=== PATIENT | male | born 1980 | race Caucasian/White ===

== ENCOUNTER 2017-03-06 17:41 | Emergency (ER) | payer SELFPAY ==
[~2017-03-06] VITALS: Ht 175.3 cm; Wt 68.0 kg
[2017-03-06 19:04] LABS: BASOPHILS # (AUTO) 0.1 K/uL (0.0-8.0); BASOPHILS % (AUTO) 1.3 % (0.0-2.0); EOSINOPHILS # (AUTO) 0.1 K/uL (0.0-0.7); EOSINOPHILS % (AUTO) 0.9 % (0.0-7.0); HEMATOCRIT 41.9 % (40-50); LYMPHOCYTES % (AUTO) 9.4 % (20.5-51.5); MEAN CORPUSCULAR HEMOGLOBIN 29.3 UUG (27.0-31.0); MEAN CORPUSCULAR HGB CONC 34 g/dL (32.0-37.0); MEAN CORPUSCULAR VOLUME 87.5 FL (82.0-92.0); MONOCYTES # (AUTO) 0.4 K/UL (0.1-1.30); MONOCYTES % (AUTO) 3.5 % (0.0-11.0); NEUTROPHILS # (AUTO) 9.4 K/UL (1.8-8.9); NEUTROPHILS % (AUTO) 84.9 % (38.5-71.5); PLATELET COUNT (AUTO) 345 K/UL (150-450); RED BLOOD CELL COUNT(AUTO) 4.79 MIL/UL (4.7-6.1)
--- NOTE | 2017-03-06 19:05 | NUR ---
saline lock placed, 2l 0.9ns bolus started, vancomycin infusing and indorsed to luly housecalls nurse to complete. blood cx and labs drawn. pt medicated for pain/positioned for comfort.
[2017-03-06 19:13] LABS: CREATININE 0.8 mg/dL (0.6-1.3); POTASSIUM 3.8 mmol/L (3.5-5.1)
[2017-03-06 19:18] LABS: BILIRUBIN,DIRECT 0.1 mg/dL (0.0-0.2); BILIRUBIN,TOTAL 0.3 mg/dL (0.2-1.0); TOTAL PROTEIN, SERUM 7.6 g/dL (6.4-8.2)
[2017-03-06 21:50] VITALS: BP 118/78
--- NOTE | 2017-03-06 21:50 | NUR ---
Patient discharged to home in stable conditon. Written and verbal after care instructions given. Patient verbalizes understanding of instructions.
== END 2017-03-06 21:51 | disposition home or self-care (01) ==
LOC: ER 17:43
DX: L03.311 Cellulitis of abdominal wall (principal); L02.211 Cutaneous abscess of abdominal wall; F17.200 Nicotine dependence, unspecified, uncomplicated
CPT/HCPCS: 36415; 83605; 85025; 85730; 87040; 87070; 87077; A4663; J2270; J2405; J2543; J3370; J3490; J7030; J7050; Q9967

== ENCOUNTER 2017-08-05 09:40 | Emergency (ER) | payer SELFPAY ==
[~2017-08-05] VITALS: Ht 172.7 cm; Wt 72.6 kg
[2017-08-05] MEDS ORDERED: VANCOMYCIN IV 1,000 MG in IV DEXTROSE 5% 250 ML IV ONE (10:45)
[2017-08-05] MEDS ORDERED: PIPERACILLIN SODIUM/TAZOBACTAM 3.375 G in IV DEXTROSE 5% 50 ML IV ONE (10:45)
[2017-08-05] MEDS ORDERED: VANCOMYCIN IV 200 ML ONE (10:56)
[2017-08-05] MEDS ORDERED: PIPERACILLIN/TAZOBACTAM/D5W 50 ML IV ONE (10:57)
[2017-08-05 11:07] LABS: BASOPHILS # (AUTO) 0.1 K/uL (0.0-8.0); BASOPHILS % (AUTO) 0.6 % (0.0-2.0); EOSINOPHILS # (AUTO) 0.1 K/uL (0.0-0.7); EOSINOPHILS % (AUTO) 0.7 % (0.0-7.0); HEMATOCRIT 40.6 % (36.7-47.1); HEMOGLOBIN 13.9 g/dL (12.5-16.3); LYMPHOCYTES # (AUTO) 1.7 K/uL (20.0-40.0); LYMPHOCYTES % (AUTO) 17.6 % (20.5-51.5); MEAN CORPUSCULAR HEMOGLOBIN 29.5 uug (23.8-33.4); MEAN CORPUSCULAR HGB CONC 34 g/dL (32.5-36.3); MEAN CORPUSCULAR VOLUME 86.1 fL (73.0-96.2); MONOCYTES # (AUTO) 0.8 K/uL (2.0-10.0); MONOCYTES % (AUTO) 7.9 % (0.0-11.0); NEUTROPHILS # (AUTO) 7.2 K/uL (1.8-8.9); NEUTROPHILS % (AUTO) 73.2 % (38.5-71.5); PLATELET COUNT (AUTO) 312 K/uL (152-348); POTASSIUM 4.1 mmol/L (3.5-5.1); RED BLOOD CELL COUNT(AUTO) 4.72 MIL/uL (4.06-5.63); WHITE BLOOD COUNT (AUTO) 9.8 K/uL (3.6-10.2)
--- NOTE | 2017-08-05 11:13 | NUR ---
SALINE LOCK PLACED/IVPB INFUSING,LABS DRAWN/SENT, PT POSITIONED FOR COMFORT. XRAYS DONE.
[2017-08-05] MEDS ORDERED: ONDANSETRON IV *ER 4 MG/2 ML VIAL IV ONE (11:15)
[2017-08-05] MEDS ORDERED: HYDROMORPHONE 1 MG/1 ML DISP.SYRIN IV ONE (11:15)
[2017-08-05] MEDS ORDERED: HYDROMORPHONE 2 MG/1 ML DISP.SYRIN ONE (11:18)
[2017-08-05] MEDS ORDERED: ONDANSETRON 4 MG/2 ML VIAL ONE (11:18)
[2017-08-05 11:21] LABS: BILIRUBIN,DIRECT 0.1 mg/dL (0.0-0.2); BILIRUBIN,TOTAL 0.4 mg/dL (0.2-1.0); TOTAL PROTEIN, SERUM 7.5 g/dL (6.4-8.2)
--- NOTE | 2017-08-05 12:53 | NUR ---
IV D/C'D INTACT, PT D/C'D HOME, ACI/RX X2 GIVEN. PT GOT DRESSED AMBULATED W/O DIFF/TOOK ALL BELONGINGS.
[2017-08-05 12:54] VITALS: BP 132/74
== END 2017-08-05 12:55 | disposition home or self-care (01) ==
LOC: ER 09:40
DX: L03.113 Cellulitis of right upper limb (principal); F32.9 Major depressive disorder, single episode, unspecified; F41.9 Anxiety disorder, unspecified; F17.210 Nicotine dependence, cigarettes, uncomplicated; F12.10 Cannabis abuse, uncomplicated
CPT/HCPCS: 36415; 70030-TC; 73130; 83605; 85025; 87040; A4663; J1170; J2405; J2543; J3370

== ENCOUNTER 2017-08-19 09:58 | Inpatient (IN) | payer SELFPAY ==
[~2017-08-19] VITALS: Ht 177.8 cm; Wt 66.3 kg
[2017-08-19] MEDS ORDERED: PIPERACILLIN SODIUM/TAZOBACTAM 3.375 G in IV DEXTROSE 5% 50 ML IV ONE ×2 (10:35→17:57)
[2017-08-19] MEDS ORDERED: VANCOMYCIN 1G/D5W 200 ML PIGGYBACK IV ONE (10:35)
[2017-08-19] MEDS ORDERED: HYDROCODONE/APAP 7.5-325MG TABLET PO PRN (10:45)
[2017-08-19] MEDS ORDERED: HYDROCODONE/APAP 7.5-325MG TABLET ONE (10:53)
[2017-08-19] MEDS ORDERED: VANCOMYCIN IV 200 ML ONE (10:53)
[2017-08-19] MEDS ORDERED: PIPERACILLIN/TAZOBACTAM/D5W 50 ML IV ONE (10:53)
[2017-08-19 10:56] LABS: BASOPHILS # (AUTO) 0.1 K/uL (0.0-8.0); BASOPHILS % (AUTO) 0.5 % (0.0-2.0); EOSINOPHILS # (AUTO) 0.1 K/uL (0.0-0.7); EOSINOPHILS % (AUTO) 0.4 % (0.0-7.0); HEMOGLOBIN 15.2 g/dL (12.5-16.3); LYMPHOCYTES # (AUTO) 1.1 K/uL (20.0-40.0); LYMPHOCYTES % (AUTO) 9.1 % (20.5-51.5); MEAN CORPUSCULAR HEMOGLOBIN 29.8 uug (23.8-33.4); MEAN CORPUSCULAR HGB CONC 35 g/dL (32.5-36.3); MEAN CORPUSCULAR VOLUME 86.2 fL (73.0-96.2); MONOCYTES # (AUTO) 0.7 K/uL (2.0-10.0); NEUTROPHILS # (AUTO) 10.3 K/uL (1.8-8.9); PLATELET COUNT (AUTO) 372 K/uL (152-348); RED BLOOD CELL COUNT(AUTO) 5.11 MIL/uL (4.06-5.63); WHITE BLOOD COUNT (AUTO) 12.3 K/uL (3.6-10.2)
[2017-08-19 11:03] LABS: *BLOOD, URINE NEGATIVE (NEGATIVE); *CLARITY,URINE CLEAR (CLEAR); *KETONES,URINE 2+ (NEGATIVE); *PROTEIN,URINE 1+ (NEGATIVE); LEUKOCYTE ESTERASE ,URINE NEGATIVE (NEGATIVE); NITRITE, URINE NEGATIVE (NEGATIVE); PH,URINE 5.5 (5.0-8.0); UGLUCOSE NEGATIVE (NEGATIVE)
[2017-08-19 11:04] LABS: CREATININE 1.1 mg/dL (0.6-1.3); POTASSIUM 4.1 mmol/L (3.5-5.1)
[2017-08-19 11:04] LABS: *COLOR,URINE DARK YELLOW (YELLOW)
--- NOTE | 2017-08-19 11:06 | NUR ---
LABS DRAWN/SALINE LOCK PLACED, ZOSYN IVPB INFUSING, SXRAYS DONE. NORCO ADMIN.
[2017-08-19 11:07] LABS: *BILIRUBIN,URIN NEGATIVE (NEGATIVE)
[2017-08-19 11:11] LABS: BILIRUBIN,TOTAL 0.6 mg/dL (0.2-1.0); TOTAL PROTEIN, SERUM 8.3 g/dL (6.4-8.2)
[2017-08-19 11:11] LABS: BACTERIA,URINE NONE SEEN /HPF (NONE SEEN); MUCUS,URINE FEW /LPF (0-FEW); RBC,URINE 0-3 /HPF (0-3); SQUAMOUS EPITHELIAL CELL,UR FEW /HPF (NONE SEEN); WBC,URINE 0-3 /HPF (0-3)
[2017-08-19 11:23] LABS: *AMPHETAMINE, URINE POSITIVE (NEGATIVE); *BARBITURATE, URINE NEGATIVE (NEGATIVE); *CANNABINOID, URINE POSITIVE (NEGATIVE); *COCCAINE, URINE NEGATIVE (NEGATIVE); *OPIATE, URINE NEGATIVE (NEGATIVE); *PHENCYCLIDINE SCREEN,URINE NEGATIVE (NEGATIVE)
--- NOTE | 2017-08-19 12:37 | NUR ---
"..No nurse" per 2nd floor marking machine tender Rohoni.
--- NOTE | 2017-08-19 12:39 | NUR ---
Nursing supervisor [employer] notified regarding the unavailability of medical-surgical nurse for this patient.
--- NOTE | 2017-08-19 14:03 | NUR ---
pt awaiting for bed availability in 2nd floor, lunch given.
[2017-08-19] MEDS ORDERED: HYDROCODONE/APAP 10-325 MG TABLET PO ONE (15:00)
[2017-08-19] MEDS ORDERED: HYDROCODONE/APAP 10-325 MG TABLET ONE (15:00)
--- NOTE | 2017-08-19 17:47 | NUR ---
sbar report to mee caballero. belongings list done, admit order written.
--- NOTE | 2017-08-19 18:08 | NUR ---
pt to rm [id number].
--- NOTE | 2017-08-19 18:30 | NUR ---
PT TRANSFERRED ONTO MEDSURG/TELEMETRY FLOOR IN STABLE CONDITION, NO S/S OF DISTRESS, AMBULATORY. VITAL SIGNS TAKEN AND ARE WNL. BELONGINGS CHECKLIST COMPLETED. WILL ENDORSE INFORMATION ABOUT PATIENT'S ADMISSION TO NEXT SHIFT NURSE. PATIENT HAS ORDER FOR REGULAR DIET. WILL CALL DIETARY TO BRING DINNER TRAY UP FOR PATIENT.
[2017-08-19 18:48] VITALS: BP 120/74
[2017-08-19] MEDS ORDERED: HYDROCODONE/APAP 5-325MG TABLET PO PRN (19:45)
[2017-08-19] MEDS ORDERED: MORPHINE SULFATE 2 MG/1 ML DISP.SYRIN IV PRN ×2 (19:45→20:15)
[2017-08-19] MEDS ORDERED: ONDANSETRON 4 MG/2 ML VIAL IV PRN (19:45)
[2017-08-19] MEDS ORDERED: ACETAMINOPHEN 325 MG TABLET PO PRN (19:45)
[2017-08-19] MEDS ORDERED: MORPHINE SULFATE 4 MG/1 ML DISP.SYRIN IV PRN (20:00)
--- NOTE | 2017-08-19 20:01 | NUR ---
CLINICAL PHARMACY NOTE:VANCOMYCIN DOSING Request for vancomycin dosing on 36 y/o male 5'8" 160lbs for cellulitis Temp 98.8 BUN 16 Scr 1.1 WBC 12.3 also on Zosyn Received vancomycin 1gm in ER. Continue vancomycin 1GM ivpb q12h estimate trough 13. Will order trough level prior to 4th dose. Will continue to monitor
[2017-08-19 20:58] VITALS: BP 113/70
[2017-08-19] MEDS: VANCOMYCIN IV 1 G in PREMIXED 0 EACH IV SCH (21:17)
[2017-08-19] MEDS: PIPERACILLIN/TAZOBACTAM/D5W 50 ML IV SCH (23:03)
[2017-08-20 04:00] VITALS: BP 133/77
--- NOTE | 2017-08-20 06:01 | NUR ---
PT SLEPT WELL THROUGH THE NIGHT AND WAS EASILY AWOKEN, PT COMPLAINED OF BURNING PAIN OR HIS HANDS/FINGERS, PT WAS GIVEN A DOSE OF MORPHINE AND WAS EFFECTIVE. PT DENIED HAVING ANY DIFFICULTY BREATHING. PT'S FINGERS ARE SLIGHTLY SWOLLEN BUT NO REDNESS NOTED. ALL NEEDS MET, SAFETY MEASURES ARE IN PLACE, CALL LIGHT WITHIN REACH, BED ALARM IS ON.
[2017-08-20] MEDS: PIPERACILLIN/TAZOBACTAM/D5W 50 ML IV SCH ×2 (06:08→12:19)
[2017-08-20] MEDS ORDERED: FAMOTIDINE 20 MG TABLET PO SCH (09:00)
[2017-08-20] MEDS: VANCOMYCIN IV 1 G in PREMIXED 0 EACH IV SCH (09:10)
--- NOTE | 2017-08-20 11:45 | NUR ---
Patient expressed intention to leave, worried of his belongings left at home. Patient wanted to smoke, discussed hospital's no smoking policy and smoking cessation teaching provided, patient verbalized understanding but refused and insisted to go out for a smoke. Patient stated "I have been patient for the last 2 days not going out to smoke". Discussed risks/safety of leaving the unit. [facility], security notified, aware.
[2017-08-20 12:02] VITALS: BP 113/75
--- NOTE | 2017-08-20 15:28 | NUR ---
CLINICAL PHARMACY NOTE:VANCOMYCIN DOSING Request for vancomycin dosing on 36 y/o male 5'8" 160lbs for cellulitis Temp 97.9 BUN 16 (08/19) Scr 1.1 (08/19) WBC 12.3 (/) also on Zosyn Continue vancomycin 1GM ivpb q12h estimate trough 13. Will order trough level prior to 4th dose (due tontonia at 2030). RN endorsed to hold dose if level >20. Will check level in am and adjust as needed. Will continue to monitor
--- NOTE | 2017-08-20 15:47 | NUR ---
RN came back from lunch break, found security, boiler house supervisor, furnace charger and other healthcare staff, stephen amado was called in. Break relief RN reported patient was threatening to hit/harm RN, stephen amado was activated. Patient was verbally abusive, refusing to sign AMA form, patient stated "I am not signing anything unless I talk to my water plumber". Patient was agitated, left his room/unit, ambulatory, in no distress. IV access and ID band removed. Patient took his belongings, refusing to sign any papers. Incident witnessed by healthcare staff stated above. notified.
[2017-08-20] MEDS ORDERED: LACTOBACILLUS RHAMNOSUS GG 1 EACH CAPSULE PO SCH (21:00)
== END 2017-08-20 15:50 | disposition left against medical advice (07) | DRG 603 ==
LOC: ER 09:58 → MED 17:57
PROVIDERS: ADMIT Internal Medicine; ATTEND Internal Medicine
DX: L03.114 Cellulitis of left upper limb (principal); E87.1 Hypo-osmolality and hyponatremia; L03.012 Cellulitis of left finger; M65.842 Other synovitis and tenosynovitis, left hand; S60.512D Abrasion of left hand, subsequent encounter; S60.511D Abrasion of right hand, subsequent encounter; S90.812D Abrasion, left foot, subsequent encounter; S90.811D Abrasion, right foot, subsequent encounter; X58.XXXD Exposure to other specified factors, subsequent encounter; F17.210 Nicotine dependence, cigarettes, uncomplicated; F12.90 Cannabis use, unspecified, uncomplicated; R73.9 Hyperglycemia, unspecified; F41.9 Anxiety disorder, unspecified; F32.9 Major depressive disorder, single episode, unspecified
CPT/HCPCS: 36415; 73120; 80307; 85025; 87040; A4663; J2270; J2543; J3370; J7040; J7060

== ENCOUNTER 2019-12-01 05:27 | Emergency (ER) | payer SELFPAY ==
[~2019-12-01] VITALS: Ht 175.3 cm; Wt 68.0 kg
[2019-12-01] MEDS ORDERED: ALPR2TAB7 PO (05:36)
--- NOTE | 2019-12-01 05:37 | NUR ---
PATIENT ARRIVED AT THE ER WITH C/O LLE PAIN SINCE YESTERDAY.
--- NOTE | 2019-12-01 05:38 | NUR ---
Dr. Thompson at bedside for MSE.
[2019-12-01] MEDS ORDERED: IBUPROFEN 600 MG TABLET ONE (05:44)
[2019-12-01] MEDS ORDERED: IBUPROFEN 600 MG TABLET PO ONE (05:45)
[2019-12-01 06:16] VITALS: BP 120/86
--- NOTE | 2019-12-01 06:17 | NUR ---
Patient discharged to home in stable condition. Written and verbal after care instructions given. Patient verbalizes understanding of instructions. Stressed follow up or return to ER for worsening s/s. Pt ambulated out of the ER. All belongings with pt.
== END 2019-12-01 06:17 | disposition home or self-care (01) ==
LOC: ER 05:30
DX: S93.602A Unspecified sprain of left foot, initial encounter (principal); S96.912A Strain of unspecified muscle and tendon at ankle and foot level, left foot, initial encounter; V00.131A Fall from skateboard, initial encounter; Y93.51 Activity, roller skating (inline) and skateboarding; Y92.89 Other specified places as the place of occurrence of the external cause; F17.210 Nicotine dependence, cigarettes, uncomplicated
CPT/HCPCS: 73610; 73630; A4663

== ENCOUNTER 2019-12-26 16:24 | Emergency (ER) | payer SELFPAY ==
[~2019-12-26] VITALS: Ht 177.8 cm; Wt 72.1 kg
[~2019-12-26 16:24] MED LIST: ALPR2TAB7 PO
--- NOTE | 2019-12-26 16:37 | NUR ---
DR. SOMMER AT BEDSIDE FOR MSE
--- NOTE | 2019-12-26 17:13 | NUR ---
Patient discharged to home in stable condition. Written and verbal after care instructions given. Patient verbalizes understanding of instructions. Stressed follow up or return to ER for worsening s/s. Patient ambulating with steady gait. NAD noted
[2019-12-26 18:18] VITALS: BP 112/80
== END 2019-12-26 17:13 | disposition home or self-care (01) ==
LOC: ER 16:27
DX: S92.325A Nondisplaced fracture of second metatarsal bone, left foot, initial encounter for closed fracture (principal); X58.XXXA Exposure to other specified factors, initial encounter; Y92.89 Other specified places as the place of occurrence of the external cause
CPT/HCPCS: 73630; A4663

== ENCOUNTER 2020-11-08 12:58 | Emergency (ER) | payer MEDICAID ==
[~2020-11-08] VITALS: Ht 170.2 cm; Wt 68.0 kg
--- NOTE | 2020-11-08 13:33 | NUR ---
PT IS IN ROOM #1B. POLICE AT THE BEDSIDE. DR ARROYO EVALUATED THE PT.
--- NOTE | 2020-11-08 14:17 | NUR ---
Patient discharged to home in stable condition. Patient taken in police custody. No signs of acute distress. Written and verbal after care instructions given. Patient verbalizes understanding of instructions. Stressed follow up or return to ER for worsening s/s.
[2020-11-08 14:18] VITALS: BP 127/73
== END 2020-11-08 14:19 | disposition home or self-care (01) ==
LOC: ER 13:01
DX: S62.102A Fracture of unspecified carpal bone, left wrist, initial encounter for closed fracture (principal); Y09 Assault by unspecified means; Y92.89 Other specified places as the place of occurrence of the external cause; F17.200 Nicotine dependence, unspecified, uncomplicated; S59.902A Unspecified injury of left elbow, initial encounter; R55 Syncope and collapse; F32.9 Major depressive disorder, single episode, unspecified; F41.9 Anxiety disorder, unspecified
CPT/HCPCS: 73070; 73100; A4663

== ENCOUNTER 2021-09-09 18:59 | Emergency (ER) | payer MEDICAID ==
[~2021-09-09] VITALS: Ht 177.8 cm; Wt 70.3 kg
--- NOTE | 2021-09-09 19:10 | NUR ---
PT AMBULATED TO ER C/O RASH ON ABD WITH UNKNOWN ETIOLOGY. PT A/O X3, NO SOB OR LABORED BREATHING, AFEBRILE. DENIES ANY CP/PRESSURE. NO GI/ DISTRESS.
--- NOTE | 2021-09-09 19:22 | NUR ---
DR. DING AT BEDSIDE, MSE IN PROGRESS.
--- NOTE | 2021-09-09 19:47 | NUR ---
LAB AT BEDSIDE.
[2021-09-09 19:57] LABS: MEAN CORPUSCULAR HEMOGLOBIN 29.5 uug (23.8-33.4); MEAN CORPUSCULAR VOLUME 86.3 fL (73.0-96.2); PLATELET COUNT (AUTO) 330 K/uL (152-348)
[2021-09-09 20:05] LABS: CREATININE 1.2 mg/dL (0.6-1.3); POTASSIUM 3.9 mmol/L (3.5-5.1)
[2021-09-09] MEDS ORDERED: ERYT250T65 PO (21:05)
[2021-09-09 21:13] VITALS: BP 126/84
--- NOTE | 2021-09-09 21:13 | NUR ---
Patient discharged to home in stable condition. Written and verbal after care instructions given. Patient verbalizes understanding of instructions. Stressed follow up or return to ER for worsening s/s. Steady gait, denies any pain/discomfort upon discharge.
== END 2021-09-09 21:12 | disposition home or self-care (01) ==
LOC: ER 19:03
DX: L03.311 Cellulitis of abdominal wall (principal); E83.51 Hypocalcemia; R73.9 Hyperglycemia, unspecified
CPT/HCPCS: 36415; 85025; A4663

== ENCOUNTER 2021-09-28 16:51 | Emergency (ER) | payer MEDICAID ==
[~2021-09-28] VITALS: Ht 177.8 cm; Wt 68.0 kg
[~2021-09-28 16:51] MED LIST changes: +ERYT250T65 PO
[2021-09-28] MEDS ORDERED: ALPR1TAB7 PO (18:14)
--- NOTE | 2021-09-28 18:34 | NUR ---
Patient discharged to home in stable condition. Written and verbal after care instructions given. Patient verbalizes understanding of instructions. Stressed follow up or return to ER for worsening s/s.
[2021-09-28 18:36] VITALS: BP 119/88
== END 2021-09-28 18:36 | disposition home or self-care (01) ==
LOC: ER 16:53
DX: F41.9 Anxiety disorder, unspecified (principal); Z76.0 Encounter for issue of repeat prescription
CPT/HCPCS: A4663

== ENCOUNTER 2022-03-19 18:39 | Emergency (ER) | payer MEDICAID ==
[~2022-03-19 18:39] MED LIST changes: +ALPR1TAB7 PO; -ALPR2TAB7 PO; -ERYT250T65 PO
== END 2022-03-19 19:46 | disposition left against medical advice (07) ==
LOC: ER 18:39
DX: Z53.21 Procedure and treatment not carried out due to patient leaving prior to being seen by health care provider (principal)

== ENCOUNTER 2022-06-23 12:11 | Emergency (ER) | payer SELFPAY ==
[~2022-06-23] VITALS: Ht 177.8 cm; Wt 68.0 kg
[2022-06-23] MEDS ORDERED: ALPR2TAB7 PO (12:29)
[2022-06-23] MEDS ORDERED: ALPRAZOLAM 0.25 MG TABLET ONE (12:30)
[2022-06-23] MEDS ORDERED: ALPRAZOLAM 0.25 MG TABLET PO ONE (12:30)
[2022-06-23 12:35] VITALS: BP 86/118
--- NOTE | 2022-06-23 12:37 | NUR ---
Patient presented to the ER reporting symptoms of anxiety. Patient requesting prescription refill. Physician seen and medications given. Patient departed ambulatory.
== END 2022-06-23 13:00 | disposition home or self-care (01) ==
LOC: ER 12:11
DX: F41.9 Anxiety disorder, unspecified (principal); Z76.0 Encounter for issue of repeat prescription; R03.0 Elevated blood-pressure reading, without diagnosis of hypertension
CPT/HCPCS: A4663

== ENCOUNTER 2022-12-20 10:44 | Emergency (ER) | payer SELFPAY ==
[~2022-12-20] VITALS: Ht 177.8 cm; Wt 68.0 kg
[~2022-12-20 10:44] MED LIST changes: +ALPR2TAB7 PO
[2022-12-20] MEDS ORDERED: ALPR2TAB2 PO (11:35)
[2022-12-20] MEDS ORDERED: AZIT500T PO (11:35)
[2022-12-20] MEDS ORDERED: PRED50TA PO (11:35)
[2022-12-20 11:56] VITALS: BP 122/85; O2SAT 99
== END 2022-12-20 11:56 | disposition home or self-care (01) ==
LOC: ER 10:44
DX: F41.9 Anxiety disorder, unspecified (principal); J22 Unspecified acute lower respiratory infection; F17.210 Nicotine dependence, cigarettes, uncomplicated; Z79.2 Long term (current) use of antibiotics; Z79.899 Other long term (current) drug therapy
CPT/HCPCS: A4663

== ENCOUNTER 2023-01-25 10:47 | Emergency (ER) | payer SELFPAY ==
[~2023-01-25] VITALS: Ht 177.8 cm; Wt 72.6 kg
[~2023-01-25 10:47] MED LIST changes: +ALPR2TAB2 PO; +AZIT500T PO; +PRED50TA PO
[2023-01-25] MEDS ORDERED: ALPRAZOLAM 0.25 MG TABLET PO ONE (11:00)
[2023-01-25] MEDS ORDERED: ALPRAZOLAM 0.5 MG TABLET ONE (11:03)
[2023-01-25] MEDS ORDERED: ALPR2TAB2 PO (11:09)
[2023-01-25 11:15] VITALS: BP 112/75; O2SAT 98
== END 2023-01-25 11:15 | disposition home or self-care (01) ==
LOC: ER 10:47
DX: F41.9 Anxiety disorder, unspecified (principal); F17.210 Nicotine dependence, cigarettes, uncomplicated; Z76.0 Encounter for issue of repeat prescription; Z79.2 Long term (current) use of antibiotics; Z79.899 Other long term (current) drug therapy
CPT/HCPCS: A4663

== ENCOUNTER 2023-07-24 13:23 | Emergency (ER) | payer SELFPAY ==
[~2023-07-24] VITALS: Ht 170.2 cm; Wt 68.0 kg
[2023-07-24] MEDS ORDERED: ALPR2TAB7 PO (14:15)
[2023-07-24 14:37] VITALS: BP 121/85; O2SAT 100
== END 2023-07-24 14:46 | disposition home or self-care (01) ==
LOC: ER 13:24
DX: F41.9 Anxiety disorder, unspecified (principal); Z76.0 Encounter for issue of repeat prescription; F32.A Depression, unspecified; F17.200 Nicotine dependence, unspecified, uncomplicated; Z79.899 Other long term (current) drug therapy
CPT/HCPCS: A4606; A4663

== ENCOUNTER 2024-03-02 04:46 | Emergency (ER) | payer SELFPAY ==
[~2024-03-02] VITALS: Ht 177.8 cm; Wt 72.6 kg
[2024-03-02] MEDS ORDERED: HYDR10SY12 PO (05:24)
[2024-03-02] MEDS ORDERED: ALPRAZOLAM 0.25 MG TABLET ONE (05:27)
[2024-03-02] MEDS: ALPRAZOLAM 0.25 MG TABLET PO ONE (05:29)
[2024-03-02 05:44] VITALS: BP 117/77; TEMP 98.6; O2SAT 98
== END 2024-03-02 05:44 | disposition home or self-care (01) ==
LOC: ER 04:56
DX: F41.9 Anxiety disorder, unspecified (principal); F17.200 Nicotine dependence, unspecified, uncomplicated; Z79.52 Long term (current) use of systemic steroids; Z79.1 Long term (current) use of non-steroidal anti-inflammatories (NSAID); Z98.890 Other specified postprocedural states
CPT/HCPCS: A4606; A4663

== ENCOUNTER 2024-04-25 20:18 | Emergency (ER) | payer SELFPAY ==
[~2024-04-25] VITALS: Ht 175.3 cm; Wt 74.8 kg
[~2024-04-25 20:18] MED LIST changes: +HYDR10SY12 PO
[2024-04-25] MEDS ORDERED: SULFAMETH/TRIMETH 800/160 MG TABLET ONE (21:25)
[2024-04-25] MEDS ORDERED: SULF1TAB48 PO (21:35)
[2024-04-25] MEDS ORDERED: ALPR2TAB PO (21:35)
[2024-04-25] MEDS: SULFAMETH/TRIMETH 800/160 MG TABLET PO ONE (21:45)
[2024-04-25] MEDS ORDERED: ALPRAZOLAM 0.5 MG TABLET ONE (21:46)
[2024-04-25] MEDS: ALPRAZOLAM 0.25 MG TABLET PO ONE (21:47)
[2024-04-25 21:49] VITALS: BP 132/81; TEMP 98.6; O2SAT 100
[2024-04-25] MEDS ORDERED: ALPR2TAB7 PO (22:01)
== END 2024-04-25 21:50 | disposition home or self-care (01) ==
LOC: ER 20:18
DX: S71.132A Puncture wound without foreign body, left thigh, initial encounter (principal); F13.239 Sedative, hypnotic or anxiolytic dependence with withdrawal, unspecified; F41.9 Anxiety disorder, unspecified; Z79.52 Long term (current) use of systemic steroids; Z88.7 Allergy status to serum and vaccine; X58.XXXA Exposure to other specified factors, initial encounter; Y93.89 Activity, other specified; Y92.89 Other specified places as the place of occurrence of the external cause; Y99.8 Other external cause status
CPT/HCPCS: A4606; A4663

== ENCOUNTER 2024-06-09 13:19 | Emergency (ER) | payer SELFPAY ==
[~2024-06-09] VITALS: Ht 177.8 cm; Wt 74.8 kg
[~2024-06-09 13:19] MED LIST changes: +SULF1TAB48 PO
[2024-06-09 13:32] VITALS: O2SAT 99
== END 2024-06-09 15:17 | disposition left against medical advice (07) ==
LOC: ER 13:19
DX: R52 Pain, unspecified (principal); Z53.21 Procedure and treatment not carried out due to patient leaving prior to being seen by health care provider
CPT/HCPCS: A4606; A4663

== ENCOUNTER 2024-08-13 11:00 | Emergency (ER) | payer SELFPAY ==
[~2024-08-13] VITALS: Ht 172.7 cm; Wt 77.1 kg
[2024-08-13] MEDS ORDERED: ALPR2TAB7 PO (11:20)
[2024-08-13 11:33] VITALS: BP 126/94; TEMP 98; O2SAT 98
[2024-08-13] MEDS ORDERED: ALPR1TAB7 PO (12:37)
== END 2024-08-13 11:34 | disposition home or self-care (01) ==
LOC: ER 11:00
DX: F41.9 Anxiety disorder, unspecified (principal); F12.10 Cannabis abuse, uncomplicated; Z76.0 Encounter for issue of repeat prescription; Z79.52 Long term (current) use of systemic steroids; Z79.899 Other long term (current) drug therapy; Z88.7 Allergy status to serum and vaccine
CPT/HCPCS: A4606; A4663

== ENCOUNTER 2024-10-23 14:15 | Emergency (ER) | payer SELFPAY ==
[~2024-10-23] VITALS: Ht 170.2 cm; Wt 70.3 kg
[2024-10-23 14:48] VITALS: BP 127/74; O2SAT 97
== END 2024-10-23 14:45 | disposition home or self-care (01) ==
LOC: ER 14:15
DX: F41.9 Anxiety disorder, unspecified (principal); F12.10 Cannabis abuse, uncomplicated; F41.1 Generalized anxiety disorder; Z76.0 Encounter for issue of repeat prescription; Z79.52 Long term (current) use of systemic steroids; Z79.899 Other long term (current) drug therapy; Z88.7 Allergy status to serum and vaccine
CPT/HCPCS: A4606; A4663

== ENCOUNTER 2025-01-17 16:42 | Emergency (ER) | payer SELFPAY ==
[~2025-01-17] VITALS: Ht 170.2 cm; Wt 70.3 kg
[2025-01-17 16:43] VITALS: BP 127/74; O2SAT 99
[2025-01-17] MEDS ORDERED: ALPRAZOLAM 0.25 MG TABLET ONE (17:16)
[2025-01-17] MEDS ORDERED: ALPR2TAB2 PO (17:18)
[2025-01-17] MEDS: ALPRAZOLAM 0.25 MG TABLET PO ONE (17:24)
== END 2025-01-17 17:30 | disposition home or self-care (01) ==
LOC: ER 16:49
DX: F41.1 Generalized anxiety disorder (principal); F19.10 Other psychoactive substance abuse, uncomplicated; Z79.52 Long term (current) use of systemic steroids; Z79.899 Other long term (current) drug therapy; Z88.7 Allergy status to serum and vaccine; Z90.89 Acquired absence of other organs
CPT/HCPCS: A4606; A4663

== ENCOUNTER 2025-04-27 11:56 | Emergency (ER) | payer OTHER ==
[~2025-04-27] VITALS: Ht 175.3 cm; Wt 70.3 kg
[~2025-04-27 11:56] MED LIST changes: +HYDR10SO PO; -HYDR10SY12 PO
[2025-04-27 12:06] VITALS: BP 124/87
[2025-04-27] MEDS ORDERED: LORA-259 PO (13:32)
[2025-04-27 13:38] VITALS: BP 124/87; TEMP 98.1; O2SAT 97
== END 2025-04-27 13:38 | disposition home or self-care (01) ==
LOC: ER 11:56
DX: F41.1 Generalized anxiety disorder (principal); F17.200 Nicotine dependence, unspecified, uncomplicated; Z79.52 Long term (current) use of systemic steroids; Z79.899 Other long term (current) drug therapy; Z88.7 Allergy status to serum and vaccine; Z90.89 Acquired absence of other organs
CPT/HCPCS: A4606; A4663